=== PATIENT | female | born 1970 | race American Indian/Alaskan Native ===

== ENCOUNTER 2020-08-19 08:20 | Outpatient (CLI) | payer BC ==
--- NOTE | 2020-08-19 09:09 | Ultrasound Report ---
ULTRASOUND BREAST BILATERAL LIMITED, 08/19/2020 CLINICAL INFORMATION / INDICATION: ABNORMAL MAMMO R92.8. Six-month follow-up. TECHNIQUE: Targeted ultrasound evaluation was performed of the area of interest. COMPARISON: Bilateral breast ultrasound 02/26/20. FINDINGS: RIGHT: There is an 8.5 mm mildly complex cyst at the 2:00 position 3 cm from the nipple. There is a 6 .6 mm mildly complex cyst at the 4:00 position 3 cm from the nipple. There are clustered microcysts a nd ductal prominence at the 10:00 position 2 cm from the nipple. All of the above findings are simila r to the prior exam. LEFT: There is a 1.7 cm ovoid cluster of microcysts at the 4:00 position 5 cm from the nipple similar to the prior exam. No new abnormality is seen. IMPRESSION: Benign-appearing cystic abnormalities in both breasts have not changed significantly [facility] 02/26/20. Routine screening mammography should be adequate for follow-up. Follow up recommendation: Routine yearly BI-RADS Category 2: Benign. A normal or "negative" report should not preclude biopsy or follow-up of a clinically suspicious find ing. Signer Name: Mahad Medina MD Signed: 08/19/2020 9:05 AM Workstation Name: [employer]
== END 2020-08-19 08:21 | disposition home or self-care (01) ==
LOC: SPVWC 08:20
PROVIDERS: ATTEND Surgery
DX: R92.8 Other abnormal and inconclusive findings on diagnostic imaging of breast (principal)